=== PATIENT | female | born 1985 | race Caucasian/White ===

== ENCOUNTER 2017-01-31 16:41 | Inpatient (IN) | payer OTHER ==
[2017-01-31] MEDS ORDERED: LIDOCAINE 1% (PF) 10 MG/ML (30 ML SDV) SQ PRN (17:11)
[2017-01-31] MEDS ORDERED: METHYLERGONOVINE 0.2 MG/ML 1 ML AMP IM PRN (17:11)
[2017-01-31] MEDS ORDERED: TERBUTALINE 1 MG/ML VIAL SQ PRN (17:11)
[2017-01-31] MEDS ORDERED: CARBOPROST TROMETHAMINE 250 MCG/ML 1 ML AMP IM PRN (17:11)
[2017-01-31] MEDS ORDERED: OXYTOCIN 10 UNIT/ML 1 ML VIAL IM PRN (17:11)
[2017-01-31] MEDS ORDERED: OXYTOCIN 20 UNITS/1000 ML NS 1,000 ML IV SCH (17:15)
[2017-01-31] MEDS ORDERED: LACTATED RINGERS 1,000 ML IV SCH (17:15)
[2017-01-31] MEDS ORDERED: PENICILLIN G POTASSIUM 5,000,000 UNIT in DEXTROSE 5% IN WATER 100 ML IV STA ×2 (17:16)
[2017-01-31 17:33] LABS: Basophils % (A) 0 %; CH 31.7; CHCM 35.2; Eosinophils # (A) 0.1 k/uL (0-0.7); Eosinophils % (A) 1 %; HDW 2.87; HGB 13.8 gm/dL (11.4-16.0); Luc # (Auto) 0.31; Luc % (Auto) 3; Lymphocytes # (A) 1.8 k/uL (1.0-4.8); Lymphocytes % (A) 16 %; MCHC 35.4 g/dL (31.0-37.0); MCV 90.4 fL (80.0-100.0); Monocytes # (A) 0.7 k/uL (0-1.0); Monocytes % (A) 6 %; Neutrophils # (A) 8.7 k/uL (1.3-7.7); Neutrophils % (A) 75 %; RBC 4.32 m/uL (3.80-5.40); WBC 11.6 k/uL (3.8-10.6); WBC (Perox) 12.19
--- NOTE | 2017-01-31 17:49 | P.HPOB ---
History of Present Illness H&P Date: 01/31/17 Chief Complaint: 39-2/7 weeks, active labor The patient is a 31-year-old 3 para 2 scissors or 2 admitted at 39-2/7 weeks as established by last menstrual period and confirmed by second trimester ultrasound. She is admitted in active labor with all signs reassuring. Her has been uncomplicated though she is group B strep positive. She also has requested of a tubal ligation. Obstetrical history: 3 para [id number] term vaginal deliveries without complications. Current statistics are listed in history present illness. EDC of 02/05/2017 was established by last menstrual period and confirmed by second trimester ultrasound. Laboratory workup demonstrates a blood type of A+ with a negative antibody screen. Rubella status is immune. All other laboratory workup was within normal limits. One hour Glucola was normal and group B strep status is positive. Gynecologic history: Unremarkable with no history of any infections to include STDs Review of Systems Review of systems is confined to history of present illness. Past Medical History Past Medical History: No Reported History History of Any Multi-Drug Resistant Organisms: None Reported Additional Past Surgical History / Comment(s): tubes in ears as child Past Anesthesia/Blood Transfusion Reactions: No Reported Reaction Past Psychological History: No Psychological Hx Reported Smoking Status: Former smoker Past Alcohol Use History: None Reported Past Drug Use History: None Reported Medications and Allergies Home Medications Medication Instructions Recorded Confirmed Type Pnv No.95/Ferrous Fum/Folic AC 1 each PO DAILY 01/31/17 01/31/17 History [ Multivitamin Tablet] Allergies Allergy/AdvReac Type Severity Reaction Status Date / Time No Known Allergies Allergy Verified 02/11/15 08:44 Exam - Vital Signs Vital signs: Intake and Output 01/31/17 01/31/17 01/31/17 06:59 14:59 22:59 Other: Weight 89.811 kg Patient Weight 02/01/17 06:59 Weight 89.811 kg in general, this is a well-developed, well-nourished white female in some discomfort as she is in active labor. Her heart has a regular rhythm and rate without murmur. Her lungs are clear to auscultation bilaterally in all simon. Her abdomen is gravid, nondistended, has normal active bowel sounds, is soft, nontender, and without any palpable masses aside from uterine fundus. Her extremities without any cyanosis, clubbing, or significant edema and are nontender to palpation bilaterally. Digital cervical exam in addition interested surgery approximately 9 cm dilated, 90-100% effaced, with the vertex in presentation at -1 station. Artificial rupture of membranes is carried out demonstrate clear fluid. Results Result Diagrams: 01/31/17 17:15 Abnormal Lab Results - Last 24 Hours (Table) 01/31/17 Range/Units 17:15 WBC 11.6 H (3.8-10.6) k/uL Neutrophils # 8.7 H (1.3-7.7) k/uL Assessment and Plan (1) Active labor at term Status: Acute (2) Group B streptococcal infection during Status: Acute Plan: The patient is admitted for active management of labor. She has undergone artificial rupture of membranes and anticipate normal vaginal delivery in the near future. She is a candidate for IV or epidural analgesia though the time may have passed. At this time she is declining medications.
[2017-01-31] MEDS ORDERED: ZOLPIDEM 5 MG TAB PO PRN (18:16)
[2017-01-31] MEDS ORDERED: ACETAMINOPHEN TAB 325 MG TAB PO PRN (18:16)
[2017-01-31] MEDS ORDERED: HYDROCORTISONE 2.5% RECTAL CREAM 30 GM TUBE RECTAL PRN (18:16)
[2017-01-31] MEDS ORDERED: WITCH HAZEL 1 EACH MED..PAD TOPICAL PRN (18:16)
[2017-01-31] MEDS ORDERED: LANOLIN CREAM 5 GM TUBE TOPICAL PRN (18:16)
[2017-01-31] MEDS ORDERED: diphenhydrAMINE 25 MG CAP PO PRN (18:16)
[2017-01-31] MEDS ORDERED: diphenhydrAMINE 50 MG/ML 1 ML VIAL IVP PRN ×2 (18:16)
[2017-01-31] MEDS ORDERED: diphenhydrAMINE 50 MG CAP PO PRN (18:16)
[2017-01-31] MEDS ORDERED: SIMETHICONE 80 MG CHEWABLE PO PRN (18:16)
[2017-01-31] MEDS ORDERED: BENZOCAINE/MENTHOL SPRAY 1 GM/SPRAY AEROSOL TOPICAL PRN (18:16)
[2017-01-31] MEDS ORDERED: Acetaminophen-Codeine 300-30mg TAB PO PRN ×2 (18:16)
--- NOTE | 2017-01-31 18:19 | P.PROBDLV ---
Vaginal Delivery Note - . Vaginal Delivery Note: The patient is a 31-year-old 3 para 2001 admitted at 39-2/7 weeks by good dating parameters. She is admitted in active labor with all signs reassuring. Her was uncomplicated and group B strep status is positive. As result, she had antibiotic prophylaxis started by progressed rapidly to complete. She underwent artificial rupture of membranes of clear fluid. She once complete, she pushed over approximately 3 contractions to a normal spontaneous vaginal delivery of a viable 9 lbs. 0 oz. baby girl with Apgars of 9 at 1 minute and 9 at 5 minutes delivered in the right occiput anterior position. The placenta was delivered spontaneously, intact, and grossly normal with a grossly normal three-vessel cord inserted approximately 6 cm from the margin of the placenta. There were no lacerations of the perineum, vagina, or cervix. Estimated blood loss for the case was approximate 100 mL. There were no complications. All sponge, instrument, and needle counts were correct. Both mother and are resting comfortably in recovery.
[2017-01-31] MEDS: IBUPROFEN 600 MG TAB PO PRN (19:52)
[2017-01-31 19:56] VITALS: BMI 31.0
[2017-01-31] MEDS: SENNOSIDES-DOCUSATE SODIUM 1 EACH TAB PO SCH (20:52)
[2017-01-31] MEDS ORDERED: PENICILLIN G POTASSIUM 2,500,000 UNIT in DEXTROSE 5% IN WATER 100 ML IV SCH ×2 (21:30)
[2017-02-01] MEDS: IBUPROFEN 600 MG TAB PO PRN ×2 (07:25→23:35)
--- NOTE | 2017-02-01 08:07 | P.PN ---
Subjective Principal diagnosis: day #1 Slept well. Normal lochia rubra. Pain well controlled. Infant Objective - Vital Signs Vital signs: Vital Signs Temp 97.9 F 02/01/17 07:57 Pulse 68 02/01/17 07:57 Resp 16 02/01/17 07:57 BP 131/87 02/01/17 07:57 Pulse Ox 98 02/01/17 07:57 Intake & Output 01/31/17 02/01/17 02/01/17 18:59 06:59 18:59 Output Total 100 Balance -100 Weight 89.811 kg Output: Estimated Blood Loss 100 Other: Voiding Method Toilet # Voids 2 1 - Constitutional General appearance: Present: average body habitus, cooperative - EENT Eyes: Present: PERRLA ENT: Present: hearing grossly normal - Neck Neck: Present: normal ROM - Respiratory Respiratory: bilateral: CTA - Cardiovascular Rhythm: regular - Gastrointestinal General gastrointestinal: Present: normal bowel sounds - Neurologic Neurologic: Present: CNII-XII intact - Musculoskeletal Musculoskeletal: Present: gait normal, strength equal bilaterally - Psychiatric Psychiatric: Present: A&O x's 3, appropriate affect, intact judgment & insight - Labs CBC & Chem 7: 01/31/17 17:15 Labs: Abnormal Lab Results - Last 24 Hours (Table) 01/31/17 Range/Units 17:15 WBC 11.6 H (3.8-10.6) k/uL Neutrophils # 8.7 H (1.3-7.7) k/uL Assessment and Plan Plan: Patient wishing tubal sterilization. We'll attempt to schedule tomorrow morning , patient has had breakfast this morning. Continue care. Time with Patient: Less than 30
[2017-02-01] MEDS: SENNOSIDES-DOCUSATE SODIUM 1 EACH TAB PO SCH ×2 (12:12→20:00)
[2017-02-02] MEDS ORDERED: LACTATED RINGERS 1,000 ML IV SCH (05:51)
[2017-02-02] MEDS ORDERED: ONDANSETRON 4 MG/2 ML VIAL IVP ONE ×2 (05:51→08:42)
[2017-02-02] MEDS ORDERED: LACTATED RINGERS 1,000 ML IV ONE (08:35)
[2017-02-02] MEDS ORDERED: DEXAMETHASONE SOD PHOSPHATE 10 MG/ML 1 ML VIAL IV ONE (08:40)
[2017-02-02] MEDS ORDERED: MIDAZOLAM 2 MG/2 ML VIAL ONE (08:54)
[2017-02-02] MEDS ORDERED: KETOROLAC 30 MG/ML 1 ML VIAL ONE (08:54)
[2017-02-02] MEDS ORDERED: LIDOCAINE 1% INJ 10MG/ML (20 ML MDV) ONE (08:54)
[2017-02-02] MEDS ORDERED: SUCCINYLCHOLINE CHLORIDE 100 MG/5 ML SYR IV ONE (08:54)
[2017-02-02] MEDS ORDERED: PROPOFOL 10 MG/ML 20 ML VIAL IV ONE (08:54)
[2017-02-02] MEDS ORDERED: fentaNYL (PF) 50 MCG/ML 2 ML AMP ONE (08:54)
--- NOTE | 2017-02-02 09:18 | P.OP ---
Date of Procedure: 02/02/17 Preoperative Diagnosis: Undesired fertility Postoperative Diagnosis: Same, normal-appearing tubes and ovaries bilaterally Procedure(s) Performed: tubal ligation Implants: Anesthesia: GETA Surgeon: Destini Worley Estimated Blood Loss (ml): 5 IV fluids (ml): 250 Urine output (ml): 0 Pathology: none sent Condition: stable Disposition: PACU Indications for Procedure: Operative Findings: Description of Procedure: Patient is brought to the operating suite where a general anesthetic is administered. She's placed in the dorsal supine position. The appropriate timeout was performed to assure proper patient and procedural identification. Antibiotics are not deemed necessary. The abdomen is prepped and draped in usual sterile fashion. A low small 3 cm infraumbilical incision is made. This is carried down through the subcutaneous tissue to the fascia. Peritoneum is identified and incised. There is no bowel or bladder involvement. The uterus is placed in lateral position and the left fallopian tube is grasped with my digital finger and brought into the operative field. It is grasped with a Iker clamp. The fimbriated end is identified to assure proper placement. A Filshie clip was used in the isthmic portion of the tube with care to traverse the entire diameter of the tube into the mesal salpinx. Ovary appears normal. Tubes placed back then into the abdominal cavity. Same procedure is carried out on the contralateral tube, again a Filshie clip placed in the isthmic portion of the tube well into the mesal salpinx to assure proper and complete occlusion. The ovary is also visualized briefly and noted to be normal. The tube is placed back into the abdominal cavity. Fascia is closed in a running fashion using 0 Vicryl suture for excellent reapproximation. Subcutaneous tissue is reapproximated with 4-0 undyed Vicryl in a subcuticular manner. Steri-Strips and Mastisol are applied to the wound. All sponge needle and enhancement counts are correct at the end of procedure. Patient is brought back to recovery room in very good condition with stable vital signs including blood pressure 112/60, pulse 66, 97% O2 saturation. Toradol is given prior to leaving the operative suite.
[2017-02-02] MEDS: HYDROmorphone 1 MG/ML 1 ML SYRINGE IVP PRN ×2 (09:45→09:50)
--- NOTE | 2017-02-02 12:28 | P.DS ---
Providers Date of admission: 01/31/17 17:07 Expected date of discharge: 02/02/17 Attending physician: Destini Worley Primary care physician: [facility] Course: This is a 31-year-old white female 3 para 2001 EDC 02/05/2017 at 39-2/7 weeks' gestation. Patient presented to the hospital and active spontaneous labor. Her was essentially unremarkable, group B strep cultures were positive. Please see dictated history and physical for details. Patient was admitted, and underwent a normal spontaneous vaginal delivery of a liveborn female infant with scores of 9 and 9 at one and 5 minutes respectively. weighed 9 lbs. 0 oz. or 4070 g. There was an estimated blood loss of 100 mL's. Please see dictated delivery note for details. This morning the patient requested tubal sterilization for undesired fertility. She was taken to the operating room and this was performed without difficulty, utilizing Filshie clips. Please see again separately dictated operative note for details. Steri-Strips and Mastisol were applied to the small infraumbilical wound. At this point patient is feeling well and is requesting discharge home. is being discharged by the chief warden as well. Patient will use [id number] medications as needed for pain, ibuprofen pills, 200 mg, 3 every 6 hours as needed. She is reminded no intercourse tampons or douching. She will follow-up with me in the office in 6 weeks. No heavy lifting, no driving for several weeks. Infant will follow-up with chief warden as scheduled. Call with any fevers shakes or chills, copious or foul-smelling lochia, with the passage of large clots, with any pain not alleviated by [id number] products, or indeed with any concerns. Patient Condition at Discharge: Good Plan - Discharge Summary New Discharge Prescriptions: No Action Pnv No.95/Ferrous Fum/Folic AC [ Multivitamin Tablet] 1 each PO DAILY Discharge Medication List Pnv No.95/Ferrous Fum/Folic AC [ Multivitamin Tablet] 1 each PO DAILY [History] Follow up Appointment(s)/Referral(s): Destini Worley MD [STAFF PHYSICIAN] - 6 Weeks Discharge Disposition: HOME SELF-CARE
[2017-02-02 15:14] VITALS: BP 130/73; PULSE 77; RESP 16; TEMP 98.6
[2017-02-02] MEDS: SENNOSIDES-DOCUSATE SODIUM 1 EACH TAB PO SCH (17:19)
== END 2017-02-02 17:00 | disposition home or self-care (01) | DRG 767 ==
LOC: FBPOP 16:41 → 4FBP 17:07
PROVIDERS: ADMIT Obstetrics & Gynecology; ATTEND Obstetrics & Gynecology
PROC: 10E0XZZ Delivery of Products of Conception, External Approach (ICD-10-PCS; principal; 2017-01-31)
PROC: 10907ZC Drainage of Amniotic Fluid, Therapeutic from Products of Conception, Via Natural or Artificial Opening (ICD-10-PCS; 2017-01-31)
PROC: 0UL70CZ Occlusion of Bilateral Fallopian Tubes with Extraluminal Device, Open Approach (ICD-10-PCS; 2017-02-02)
DX: O99.824 Streptococcus B carrier state complicating childbirth (principal); Z86.69 Personal history of other diseases of the nervous system and sense organs; Z87.891 Personal history of nicotine dependence; Z37.0 Single live birth; Z3A.39 39 weeks gestation of pregnancy; Z30.2 Encounter for sterilization
CPT/HCPCS: 85025; 88307